=== PATIENT | female | born 1985 | race Caucasian/White ===

== ENCOUNTER 2019-08-14 20:58 | Emergency (ER) | payer SELFPAY ==
--- NOTE | 2019-08-14 21:41 | Emergency Department Report ---
Chief Complaint: Vaginal Bleeding Stated Complaint: BLEEDING 12 WEEKS PREG - HPI History of Present Illness: The pt is a 34 y/o F p/w a cc of vag bleeding. The pt is ~13 weeks GA and states she noticed some blood when wiping after urinating yd. Today th ept developed heavy vag bleeding and LAP. - Exam Vital Signs: Vital Signs 08/14/19 21:06 Temperature 97.7 F Pulse Rate 106 H Respiratory 18 Rate Blood Pressure 109/78 O2 Sat by Pulse 100 Oximetry MSE screening note: Focused history and physical exam performed. Due to findings the following was ordered: cbc, shcg quant, ABO/RH pelvic u/s ED Disposition for MSE Condition: Stable
[2019-08-14 22:03] LABS: Basophils % (Auto) 0.4 % (0.0-1.8); Eosinophils # (Auto) 0.1 K/mm3 (0.0-0.4); Hematocrit 36.3 % (30.3-42.9); Hemoglobin 12.4 gm/dl (10.1-14.3); Lymphocytes # (Auto) 2.2 K/mm3 (1.2-5.4); Lymphocytes % (Auto) 24.6 % (13.4-35.0); Mean Corpuscular HGB Conc 34 % (30-34); Mean Corpuscular Volume 85 fl (79-97); Monocytes # (Auto) 0.9 K/mm3 (0.0-0.8); Monocytes % (Auto) 9.9 % (0.0-7.3); Platelet Count 391 K/mm3 (140-440); Red Blood Count 4.27 M/mm3 (3.65-5.03); Red Cell Distribution Width 15.1 % (13.2-15.2)
--- NOTE | 2019-08-14 23:00 | Ultrasound Report ---
ULTRASOUND OBSTETRIC INDICATION: vaginal bleeding, pelvic pain, . TECHNIQUE: Transabdominal. COMPARISON: None available. FINDINGS: A live intrauterine twin is noted. Twin B has a crown-rump length of 7.12 cm, consistent with an age of 13 weeks, 2 days. The heart rate of twin B is 154 bpm. Twin A has a crown-rump length of 7.01 cm, consistent with an age of 13 weeks, 2 days. The heart rate of twin A is 151 bpm. No free fluid or other acute abnormality is seen. IMPRESSION: 1. Live twin with an estimated age of 13 weeks, 2 days. 2. No acute sonographic abnormality of the pelvis. Signer Name: Patrick Velasco MD Signed: 08/14/2019 10:56 PM Workstation Name: [id number]
[2019-08-14 23:45] LABS: Bilirubin,Urine NEG (Negative); Blood,Urine LG (Negative); Color,Urine Red (Yellow); Urobilinogen,Urine < 2.0 mg/dL (<2.0)
[2019-08-14 23:46] LABS: RBC,Urine > 182.0 /HPF (0.0-6.0)
[2019-08-14 23:51] LABS: Alanine Aminotransferase 19 units/L (7-56); Albumin 3.9 g/dL (3.9-5); BUN/Creatinine Ratio 23; Blood Urea Nitrogen 9 mg/dL (7-17); Hemolysis Index 16
[2019-08-15] MEDS ORDERED: ACETAMINOPHEN 500 MG TAB PO ONE (01:28)
[2019-08-15] MEDS ORDERED: cephALEXin 500 MG CAP PO ONE (01:28)
--- NOTE | 2019-08-15 01:34 | Emergency Department Report ---
ED Female HPI - General Chief complaint: Vaginal Bleeding Stated complaint: BLEEDING 12 WEEKS PREG Source: patient, family Mode of arrival: Ambulatory Limitations: No Limitations - History of Present Illness Initial comments: Patient is a A0 4-year-old female who is approximately 13 weeks gestation who presents to the ED complaining of acute onset persistent sup rapubic pain and vaginal bleeding for the last 24 hours worse in the last 8 hours. Patient states that she initially had vaginal spotting present when she wipes but that in the last 8 hours she has had heavy vaginal bleeding and is hard to fill one sanitary pad. Patient denies fever, chills, nausea, vomiting, dizziness, syncope, dysuria, urinary frequency and urgency, vaginal discharge, diarrhea or syncope. MD Complaint: vaginal bleeding, pelvic pain (suprapubic) -: Sudden, hour(s) (24) Location: suprapubic, other (vaginal) Radiation: non-radiating Severity: moderate Severity scale (0 -10): 4 Quality: cramping, aching Consistency: intermittent Improves with: none Worsens with: none Are you Now?: Yes (13 weeks gestation) Associated Symptoms: denies other symptoms, vaginal bleeding, abdominal pain (suprapubic). denies: headaches, loss of appetite, hematuria, shortness of breath, syncope - Related Data Sexually active: Yes : 1 Para: 0 A: 0 Previous Rx's Medication Instructions Recorded Last Taken Type Acetaminophen [Tylenol] 500 mg PO Q6HR PRN #30 tablet 08/15/19 Unknown Rx cephALEXin [Keflex] 500 mg PO Q6HR #40 capsule 08/15/19 Unknown Rx Allergies Allergy/AdvReac Type Severity Reaction Status Date / Time No Known Allergies Allergy Verified 01/17/15 06:18 ED Review of Systems ROS: Stated complaint: BLEEDING 12 WEEKS PREG Other details as noted in HPI Constitutional: denies: chills, fever Eyes: denies: eye pain, eye discharge, vision change ENT: denies: ear pain, throat pain Respiratory: denies: cough, shortness of breath, wheezing Cardiovascular: denies: chest pain, palpitations Endocrine: no symptoms reported Gastrointestinal: abdominal pain (suprapubic). denies: nausea, diarrhea Genitourinary: abnormal menses (vaginal bleeding). denies: urgency, dysuria, discharge Musculoskeletal: denies: back pain, joint swelling, arthralgia Skin: denies: rash, lesions Neurological: denies: headache, weakness, paresthesias Psychiatric: denies: anxiety, depression Hematological/Lymphatic: denies: easy bleeding, easy bruising ED Past Medical Hx - Past Medical History Previous Medical History?: No - Surgical History Past Surgical History?: No - Social History Smoking Status: Never Smoker Substance Use Type: None - Medications Home Medications: Home Medications Medication Instructions Recorded Confirmed Last Taken Type Acetaminophen [Tylenol] 500 mg PO Q6HR PRN #30 tablet 08/15/19 Unknown Rx cephALEXin [Keflex] 500 mg PO Q6HR #40 capsule 08/15/19 Unknown Rx ED Physical Exam - General Limitations: No Limitations General appearance: alert, in no apparent distress - Head Head exam: Present: atraumatic, normocephalic, normal inspection - Eye Eye exam: Present: normal appearance, PERRL, EOMI Pupils: Present: normal accommodation - ENT ENT exam: Present: normal exam, normal orophraynx, mucous membranes moist, TM's normal bilaterally, normal external ear exam - Neck Neck exam: Present: normal inspection, full ROM - Respiratory Respiratory exam: Present: normal lung sounds bilaterally. Absent: respiratory distress, wheezes, rales, rhonchi, chest wall tenderness, decreased breath sounds - Cardiovascular Cardiovascular Exam: Present: normal rhythm, tachycardia, normal heart sounds. Absent: systolic murmur, diastolic murmur, rubs, gallop - GI/Abdominal GI/Abdominal exam: Present: soft, tenderness (mildly tender in suprapubic area), normal bowel sounds. Absent: guarding, rebound - Bi-manual exam: Present: other (Deferred pelvic exam, patient preference) - Extremities Exam Extremities exam: Present: normal inspection, full ROM, normal capillary refill - Back Exam Back exam: Present: normal inspection, full ROM. Absent: tenderness, CVA tenderness (R), CVA tenderness (L), muscle spasm, paraspinal tenderness, vertebral tenderness - Neurological Exam Neurological exam: Present: alert, oriented X3, CN II-XII intact, normal gait, reflexes normal - Psychiatric Psychiatric exam: Present: normal affect, normal mood - Skin Skin exam: Present: warm, dry, intact, normal color. Absent: rash ED Course Vital Signs 08/14/19 21:06 Temperature 97.7 F Pulse Rate 106 H Respiratory 18 Rate Blood Pressure 109/78 O2 Sat by Pulse 100 Oximetry ED Medical Decision Making - Lab Data Result diagrams: 08/14/19 21:44 08/14/19 23:16 - Radiology Data Radiology results: report reviewed, image reviewed Findings [facility] [address] [place] [address] Ultrasound Report Signed Patient: TERRENCE AYALA MR#: [id number] : 1985 Acct:[id number] Age/Sex: 34 / F ADM Date: 08/14/19 Loc: ED Attending Dr: Ordering Physician: ALEXEY PIERRE MD Date of Service: 08/14/19 Procedure(s): US OB <= 14 wk fetus add gest Accession Number(s): [id number] cc: ALEXEY PIERRE MD ULTRASOUND OBSTETRIC INDICATION: vaginal bleeding, pelvic pain, . TECHNIQUE: Transabdominal. COMPARISON: None available. FINDINGS: A live intrauterine twin is noted. Twin B has a crown-rump length of 7.12 cm, consistent with an age of 13 weeks, 2 days. The heart rate of twin B is 154 bpm. Twin A has a crown-rump length of 7.01 cm, consistent with an age of 13 weeks, 2 days. The heart rate of twin A is 151 bpm. No free fluid or other acute abnormality is seen. IMPRESSION: 1. Live twin with an estimated age of 13 weeks, 2 days. 2. No acute sonographic abnormality of the pelvis. Signer Name: Patrick Velasco MD Signed: 08/14/2019 10:56 PM Workstation Name: [id number] Transcribed By: [place] Dictated By: Patrick Velasco MD Electronically Authenticated By: Patrick Velasco MD Signed Date/Time: 08/14/192255 DD/ 52 TD/TT: - Medical Decision Making This is a 34-year-old female whose A0 and is approximately 13 weeks gestation presented to the ED with suprapubic pain and heavy vaginal bleeding. In the ED, patient is alert and oriented 3 and is not in distress but anxious and tachycardic in triage. Patient was treated for pain in the ED with Tylenol. Lab test results were reviewed and shows hCG Quant 86208, and significant urinary tract infection. The rest of the lab test results are nonactionable. Patient was assaulted in the ED with Keflex 1 g by mouth 1 for UTI. Transvaginal ultrasound shows live intrauterine twin is noted, and Twin B has a crown-rump length of 7.12 cm, consistent with an age of 13 weeks, 2 days. The heart rate of twin B is 154 bpm; and Twin A has a crown-rump length of 7.01 cm, consistent with an age of 13 weeks, 2 days. The heart rate of twin A is 151 bpm. patient was discharged home on antibiotics for UTI and advised to maintain a complete pelvic rest with no heavy lifting, strenuous physical activity or sexual activity until follow-up with [facility] physician in 3-5 days for reevaluation. Patient was also advised to return to the ED immediately if symptoms get worse. - Differential Diagnosis Threatened miscarriage; UTI; Subchorionic bleed; ovarian cyst Critical care attestation.: If time is entered above; I have spent that time in minutes in the direct care of this critically ill patient, excluding procedure time. ED Disposition Clinical Impression: Threatened miscarriage, Acute urinary tract infection Abdominal pain in Qualifiers: Trimester: second trimester Qualified Code(s): O26.892 - Other specified related conditions, second trimester; R10.9 - Unspecified abdominal pain Disposition: DC-01 TO HOME OR SELFCARE Is pt being admited?: No Does the pt Need Aspirin: No Condition: Stable Instructions: Threatened Miscarriage (ED), Urinary Tract Infection in Women (ED) Additional Instructions: Mantenga un descanso plvico completo sin actividad fsica, actividad fsica extenuante, levantar objetos pesados ??o actividad sexual. [place] Tylenol segn sea necesario para el dolor, tome los antibiticos orales para la infeccin urinaria y kimberly un seguimiento con el mdico obstetra / gineclogo en 3-5 salazar para la reevaluacin. Regrese al servicio de urgencias de inmediato si los sntomas empeoran. Prescriptions: Acetaminophen [Tylenol] 500 mg PO Q6HR PRN #30 tablet PRN Reason: Pain , Severe (7-10) cephALEXin [Keflex] 500 mg PO Q6HR #40 capsule Referrals: WAQAR GARCIA MD [Staff Physician] - 3-5 Days Time of Disposition: 01:40 Print Language: MALAWIAN
[2019-08-15 02:15] VITALS: BP 110/68
== END 2019-08-15 02:15 | disposition home or self-care (01) ==
LOC: ED 20:58
DX: O20.0 Threatened abortion (principal); O23.31 Infections of other parts of urinary tract in pregnancy, first trimester; Z3A.13 13 weeks gestation of pregnancy
CPT/HCPCS: 36415; 76801; 76802; 80053; 81001; 84702; 85025; 86900; 86901

== ENCOUNTER 2020-01-09 03:56 | Observation (INO) | payer OTHER ==
[2020-01-09] MEDS ORDERED: LACTATED RINGERS 500 ML IV ONE (04:53)
[2020-01-09] MEDS ORDERED: TERBUTALINE 1 MG/1 ML INJ SUB-Q ONE (05:24)
[2020-01-09] MEDS ORDERED: BUTORPHANOL 2 MG/1 ML INJ IV ONE (05:25)
[2020-01-09 05:33] LABS: Bacteria,Urine 1+ /HPF (Negative); Bilirubin,Urine NEG (Negative); Blood,Urine NEG (Negative); Color,Urine Straw (Yellow); Mucus,Urine FEW /HPF; Protein,Urine <15 mg/dL mg/dL (Negative); RBC,Urine < 1.0 /HPF (0.0-6.0); Urobilinogen,Urine < 2.0 mg/dL (<2.0)
[2020-01-09 05:58] LABS: Basophils % (Auto) 0.5 % (0.0-1.8); Eosinophils # (Auto) 0.1 K/mm3 (0.0-0.4); Hematocrit 36.1 % (30.3-42.9); Lymphocytes # (Auto) 2.6 K/mm3 (1.2-5.4); Lymphocytes % (Auto) 31.5 % (13.4-35.0); Mean Corpuscular HGB Conc 33 % (30-34); Mean Corpuscular Volume 82 fl (79-97); Monocytes # (Auto) 0.5 K/mm3 (0.0-0.8); Monocytes % (Auto) 6.6 % (0.0-7.3); Platelet Count 223 K/mm3 (140-440); Red Blood Count 4.41 M/mm3 (3.65-5.03); Red Cell Distribution Width 16.7 % (13.2-15.2)
[2020-01-09] MEDS ORDERED: ceFAZolin/Water 2 GM/20 ML 2 GM/20 ML SYRINGE IV NR (06:00)
[2020-01-09] MEDS ORDERED: LACTATED RINGERS 1,000 ML IV SCH (07:00)
--- NOTE | 2020-01-09 08:49 | Ultrasound Report ---
Examination: Ultrasound Obstetrical Limited, 01/09/2020 INDICATION: Study is performed to evaluate presentation only of twin position. COMPARISON: Obstetrical ultrasound, 08/14/2019 FINDINGS: Twin A is in the cephalic position. Twin B is in the breech position. IMPRESSION: Positioning of twin A and twin B as above. Signer Name: Kassandra Borges MD Signed: 01/09/2020 8:45 AM Workstation Name: [id number]
[2020-01-09 10:23] VITALS: BP 92/55
== END 2020-01-09 10:40 | disposition home or self-care (01) ==
LOC: TRG 03:56 → APU 04:02 → TRG 05:50 → APU 05:50 → LD 08:11
PROVIDERS: ADMIT Obstetrics & Gynecology; ATTEND Obstetrics & Gynecology
DX: O62.9 Abnormality of forces of labor, unspecified (principal); O30.003 Twin pregnancy, unspecified number of placenta and unspecified number of amniotic sacs, third trimester; O32.1XX0 Maternal care for breech presentation, not applicable or unspecified; Z3A.34 34 weeks gestation of pregnancy
CPT/HCPCS: 36415; 76815; 81001; 82962; 85025; 86592; 86850; 86900; 86901; 87086; 96365; 96372; 96375; G0378; J0595; J0690; J3105; J7120

== ENCOUNTER 2020-01-19 18:02 | Outpatient (CLI) | payer OTHER ==
[2020-01-19 18:35] VITALS: BP 105/68
[2020-01-19] MEDS ORDERED: LACTATED RINGERS 1,000 ML IV ONE (20:49)
[2020-01-19] MEDS ORDERED: BETAMET ACET/BETAMET NA PH 6 MG/ML INJ 5 ML MDV IM ONE (20:49)
== END 2020-01-19 20:14 | disposition home or self-care (01) ==
LOC: TRG 18:02 → APU 18:05 → TRG 20:14
PROVIDERS: ATTEND Obstetrics & Gynecology
DX: O62.9 Abnormality of forces of labor, unspecified (principal); O24.419 Gestational diabetes mellitus in pregnancy, unspecified control; O09.523 Supervision of elderly multigravida, third trimester; Z3A.35 35 weeks gestation of pregnancy
CPT/HCPCS: 59025; 96372; J0702

== ENCOUNTER 2020-01-20 19:12 | Outpatient (CLI) | payer SELFPAY ==
[2020-01-20 21:01] VITALS: BP 120/77
[2020-01-20] MEDS ORDERED: BETAMET ACET/BETAMET NA PH 6 MG/ML INJ 5 ML MDV IM ONE (21:17)
[2020-01-20] MEDS ORDERED: LACTATED RINGERS 500 ML IV ONE (22:20)
== END 2020-01-20 21:53 | disposition home or self-care (01) ==
LOC: TRG 19:12 → APU 19:12 → TRG 21:53
PROVIDERS: ATTEND Obstetrics & Gynecology
DX: O47.03 False labor before 37 completed weeks of gestation, third trimester (principal); Z3A.35 35 weeks gestation of pregnancy
CPT/HCPCS: 59025; J0702